=== PATIENT | male | born 1980 | race Caucasian/White ===

== ENCOUNTER 2022-02-04 09:32 | Emergency (ER) | payer SELFPAY ==
[2022-02-04 10:20] VITALS: BP 0/0; PULSE 0; RESP 0; TEMP -17.7; TEMP 0
== END 2022-02-04 10:22 | disposition left against medical advice (07) ==
PROVIDERS: Emergency Provider Nurse Practitioner Family
DX: Z53.21 Procedure and treatment not carried out due to patient leaving prior to being seen by health care provider (principal)